=== PATIENT | male | born 2000 | race African-American/Black ===

== ENCOUNTER 2024-02-02 15:53 | Outpatient (OUT) | payer OTHER, SELFPAY ==
--- NOTE | 2024-02-02 16:02 | XR_ITS ---
The [address] [address] Patient Name: KRISTINE NEGRON MRN: [id number] date: 2000 Sex: M Assigned Patient Location: RAD Current Patient Location: [facility] Accession/Order Number: [id number] Exam Date: 02/02/2024 16:18 Report Date: 02/02/2024 16:45 At the request of: COY KHAN Procedure: XR hip LT 2V w/ pelvis EXAM: XR hip LT 2V w/ pelvis HISTORY: Left Hip Pain COMPARISON: None. TECHNIQUE: An AP view of the pelvis, 2 additional views of the left hip are performed. FINDINGS: There is no acute fracture. The bony structures are intact. Joint spaces are maintained. There are phleboliths within the pelvis. XR/XR hip LT 2V w/ pelvis IMPRESSION: No acute bony abnormality. Electronically authenticated by: RISSA NEGRETE Date: 02/02/2024 16:45
== END 2024-02-02 15:54 | disposition home or self-care (01) ==
LOC: RAD 15:57
PROVIDERS: Visit Provider Nurse Practitioner Family
DX: M25.552 Pain in left hip (principal)
CPT/HCPCS: 73502